=== PATIENT | male | born 1940 | race Caucasian/White ===

== ENCOUNTER → 2018-07-09 | Outpatient (CLI) | payer MEDICARE ==
[2018-07-09 12:04] LABS: HEMATOCRIT 24.8 % (42.0-52.0); HEMOGLOBIN 8.1 g/dL (13.5-18.0); MEAN CELL VOLUME 97 fl (78-100); MEAN CORPUSCULAR HEMOGLOBIN 32 pg (27-31); MEAN CORPUSCULAR HGB CONC 33 g/dL (33-37); MEAN PLATELET VOLUME 10.5 fl (7.4-10.4); PLATELET COUNT 290 K/mm3 (130-400); RED BLOOD COUNT 2.55 M/mm3 (4.20-5.60); RED CELL DISTRIBUTION WIDTH 12.7 % (11.5-14.5); WHITE BLOOD COUNT 23.2 K/mm3 (4.8-10.8)
[2018-07-09 12:06] LABS: ALBUMIN 2.2 g/dL (3.5-5.0); CALCIUM 8.3 mg/dL (8.4-10.2); POTASSIUM 4.2 mmol/L (3.6-5.0); TOTAL BILIRUBIN 0.4 mg/dL (0.2-1.3); TOTAL PROTEIN 4.2 g/dL (6.3-8.2)
[2018-07-09 12:33] LABS: LYMPHOCYTE 1 % (20-51); MONOCYTE 2 % (3-10); NEUTROPHILS 97 % (42-75)
== END ==
LOC: LAB 11:17
PROVIDERS: Emergency Medicine
DX: J44.0 Chronic obstructive pulmonary disease with (acute) lower respiratory infection (principal); J18.9 Pneumonia, unspecified organism; J44.1 Chronic obstructive pulmonary disease with (acute) exacerbation

== ENCOUNTER → 2018-07-16 | Outpatient (CLI) | payer MEDICARE ==
[2018-07-16 11:54] LABS: HEMATOCRIT 24.7 % (42.0-52.0)
[2018-07-16 12:22] LABS: ALBUMIN 2.4 g/dL (3.5-5.0); CALCIUM 8.2 mg/dL (8.4-10.2); POTASSIUM 4.8 mmol/L (3.6-5.0); TOTAL BILIRUBIN 0.4 mg/dL (0.2-1.3); TOTAL PROTEIN 4.7 g/dL (6.3-8.2)
[2018-07-16 13:46] LABS: HEMOGLOBIN 7.8 g/dL (13.5-18.0)
== END ==
LOC: LAB 10:11
PROVIDERS: Emergency Medicine
DX: J44.0 Chronic obstructive pulmonary disease with (acute) lower respiratory infection (principal); J18.9 Pneumonia, unspecified organism; J44.1 Chronic obstructive pulmonary disease with (acute) exacerbation

== ENCOUNTER → 2018-07-23 | Outpatient (CLI) | payer MEDICARE ==
[2018-07-23 10:22] LABS: HEMATOCRIT 26.5 % (42.0-52.0); HEMOGLOBIN 8.1 g/dL (13.5-18.0)
== END ==
LOC: LAB 10:00
PROVIDERS: Emergency Medicine
DX: D50.0 Iron deficiency anemia secondary to blood loss (chronic) (principal); R79.9 Abnormal finding of blood chemistry, unspecified

== ENCOUNTER → 2018-08-13 | Outpatient (CLI) | payer MEDICARE, OTHER | LOC: RAD 07:15 | DX: N26.1 Atrophy of kidney (terminal) (principal); N18.9 Chronic kidney disease, unspecified ==

== ENCOUNTER → 2018-08-28 | Outpatient (CLI) | payer MEDICARE, OTHER ==
[2018-08-28 12:23] LABS: URINE APPEARANCE CLEAR; URINE BILIRUBIN NEGATIVE (NEGATIVE); URINE BLOOD NEGATIVE (NEGATIVE); URINE COLOR YELLOW; URINE GLUCOSE 50 mg/dL mg/dL (NEGATIVE); URINE KETONE NEGATIVE (NEGATIVE); URINE LEUKOCYTE ESTERASE NEGATIVE (NEGATIVE); URINE NITRATE NEGATIVE (NEGATIVE); URINE PROTEIN(semi-quant) 1+ mg/dL (NEGATIVE); URINE UROBILINOGEN NORMAL (NORMAL)
[2018-08-28 12:24] LABS: URINE MUCUS PRESENT (NOT PRESENT)
[2018-08-28 12:35] LABS: CALCIUM 9.2 mg/dL (8.4-10.2); POTASSIUM 3.7 mmol/L (3.6-5.0)
[2018-08-28 12:50] LABS: HEMATOCRIT 30.9 % (42.0-52.0); HEMOGLOBIN 9.7 g/dL (13.5-18.0)
== END ==
LOC: LAB 11:41
PROVIDERS: Emergency Medicine
DX: I12.9 Hypertensive chronic kidney disease with stage 1 through stage 4 chronic kidney disease, or unspecified chronic kidney disease (principal); N18.4 Chronic kidney disease, stage 4 (severe); D63.1 Anemia in chronic kidney disease

== ENCOUNTER → 2018-12-07 | Outpatient (CLI) | payer MEDICARE, OTHER ==
[2018-12-07 08:29] LABS: HEMATOCRIT 33.3 % (42.0-52.0); HEMOGLOBIN 10.5 g/dL (13.5-18.0)
== END ==
LOC: LAB 07:58
PROVIDERS: Emergency Medicine
DX: D50.0 Iron deficiency anemia secondary to blood loss (chronic) (principal); R89.9 Unspecified abnormal finding in specimens from other organs, systems and tissues

== ENCOUNTER → 2018-12-24 | Outpatient (CLI) | payer MEDICARE, OTHER ==
[2018-12-24 08:26] LABS: HEMATOCRIT 34.5 % (42.0-52.0); HEMOGLOBIN 10.8 g/dL (13.5-18.0); MEAN PLATELET VOLUME 8.4 fl (7.4-10.4); RED BLOOD COUNT 3.71 M/mm3 (4.20-5.60); RED CELL DISTRIBUTION WIDTH 14.6 % (11.5-14.5); WHITE BLOOD COUNT 8.3 K/mm3 (4.8-10.8)
[2018-12-24 08:55] LABS: CALCIUM 9.4 mg/dL (8.3-10.5)
== END ==
LOC: LAB 08:12
PROVIDERS: Internal Medicine
DX: I12.9 Hypertensive chronic kidney disease with stage 1 through stage 4 chronic kidney disease, or unspecified chronic kidney disease (principal); N18.4 Chronic kidney disease, stage 4 (severe); D63.1 Anemia in chronic kidney disease

== ENCOUNTER → 2019-02-20 | Outpatient (CLI) | payer MEDICARE, OTHER | LOC: LAB 08:40 | DX: J47.9 Bronchiectasis, uncomplicated (principal) ==

== ENCOUNTER → 2019-03-20 | Outpatient (CLI) | payer MEDICARE, OTHER ==
[2019-03-20 08:55] LABS: HEMATOCRIT 34.9 % (42.0-52.0); HEMOGLOBIN 11.1 g/dL (13.5-18.0)
== END ==
LOC: LAB 08:39
PROVIDERS: Emergency Medicine
DX: D50.0 Iron deficiency anemia secondary to blood loss (chronic) (principal); R89.9 Unspecified abnormal finding in specimens from other organs, systems and tissues

== ENCOUNTER → 2019-09-26 | Outpatient (CLI) | payer MEDICARE, OTHER ==
[2019-09-26 09:01] LABS: MEAN PLATELET VOLUME 8.6 fl (7.4-10.4); RED BLOOD COUNT 3.78 M/mm3 (4.20-5.60); RED CELL DISTRIBUTION WIDTH 13.7 % (11.5-14.5); WHITE BLOOD COUNT 6.7 K/mm3 (4.8-10.8)
[2019-09-26 09:24] LABS: ALBUMIN 3.7 g/dL (3.4-4.8)
[2019-09-26 09:25] LABS: POTASSIUM 3.8 mmol/L (3.5-5.1)
[2019-09-26 09:26] LABS: CALCIUM 9.8 mg/dL (8.3-10.5)
== END ==
LOC: LAB 08:45
PROVIDERS: Internal Medicine Nephrology
DX: I12.9 Hypertensive chronic kidney disease with stage 1 through stage 4 chronic kidney disease, or unspecified chronic kidney disease (principal); E11.22 Type 2 diabetes mellitus with diabetic chronic kidney disease; N18.4 Chronic kidney disease, stage 4 (severe)

== ENCOUNTER → 2021-02-25 | Outpatient (CLI) | payer MEDICARE, OTHER | LOC: PT 08:40 | DX: M16.12 Unilateral primary osteoarthritis, left hip (principal) ==

== ENCOUNTER → 2021-09-07 | Outpatient (CLI) | payer MEDICARE, OTHER ==
[2021-09-07 12:49] LABS: BASO # 0.06 K/mm3 (0.02-0.10); EOS # 0.18 K/mm3 (0.04-0.40); EOS % 2.4 % (0.0-4.0); HEMATOCRIT 38.8 % (42.0-52.0); HEMOGLOBIN 12.3 g/dL (13.5-18.0); LYMPH# 1.41 K/mm3 (1.50-4.00); MEAN CELL VOLUME 101 fl (78-100); MEAN CORPUSCULAR HEMOGLOBIN 32 pg (27-31); MEAN CORPUSCULAR HGB CONC 32 g/dL (33-37); MEAN PLATELET VOLUME 7.9 fl (7.4-10.4); MONO # 0.82 K/mm3 (0.20-0.80); NEU # 5.09 K/mm3 (1.40-6.50); PLATELET COUNT 324 K/mm3 (130-400); RED BLOOD COUNT 3.84 M/mm3 (4.20-5.60); RED CELL DISTRIBUTION WIDTH 13.4 % (11.5-14.5); WHITE BLOOD COUNT 7.6 K/mm3 (4.8-10.8)
[2021-09-07 13:05] LABS: URINE APPEARANCE CLEAR; URINE BILIRUBIN NEGATIVE (NEGATIVE); URINE BLOOD TRACE (NEGATIVE); URINE COLOR YELLOW; URINE GLUCOSE NEGATIVE (NEGATIVE); URINE KETONE NEGATIVE (NEGATIVE); URINE LEUKOCYTE ESTERASE NEGATIVE (NEGATIVE); URINE NITRATE NEGATIVE (NEGATIVE); URINE PROTEIN(semi-quant) 2+ (NEGATIVE); URINE UROBILINOGEN NORMAL (NORMAL)
[2021-09-07 13:06] LABS: URINE MUCUS PRESENT (NOT PRESENT)
[2021-09-07 13:50] LABS: ALBUMIN 3.8 g/dL (3.4-4.8); POTASSIUM 4.2 mmol/L (3.5-5.1)
[2021-09-07 13:52] LABS: CALCIUM 9.6 mg/dL (8.3-10.5)
[2021-09-07 13:53] LABS: TOTAL PROTEIN 7.6 g/dL (6.2-8.1)
[2021-09-07 13:55] LABS: TOTAL BILIRUBIN 0.4 mg/dL (0.2-1.2)
[2021-09-07 13:59] LABS: MAGNESIUM 2.23 mg/dL (1.60-2.60)
== END ==
LOC: LAB 12:34
PROVIDERS: Internal Medicine
DX: C61 Malignant neoplasm of prostate (principal); E11.9 Type 2 diabetes mellitus without complications; J44.9 Chronic obstructive pulmonary disease, unspecified; E78.2 Mixed hyperlipidemia; I10 Essential (primary) hypertension; K90.9 Intestinal malabsorption, unspecified

== ENCOUNTER 2021-10-18 14:51 | Emergency (ER) | payer MEDICARE, OTHER ==
[~2021-10-18] VITALS: Wt 84.1 kg
[2021-10-18] MEDS ORDERED: SINGULAIR 110 MG/TAB PO (15:02)
[2021-10-18] MEDS ORDERED: GLUCOTROL 5M5 MG/TAB PO (15:02)
[2021-10-18] MEDS ORDERED: ATORVASTATIN CA10 MG PO (15:02)
[2021-10-18] MEDS ORDERED: CARDIZEM CD 24240 MG PO (15:02)
[2021-10-18] MEDS ORDERED: BROVANA15 MCG/2 M IH (15:15)
[2021-10-18] MEDS ORDERED: BUDESONIDE0.25 MG/2 IH (15:15)
[2021-10-18 15:18] LABS: PARTIAL THROMBOPLASTIN TIME 22.3 SECONDS (21.0-32.0)
[2021-10-18] MEDS ORDERED: ELIQUIS5 MG PO (16:27)
[2021-10-18 16:48] VITALS: BP 130/90
== END 2021-10-18 16:38 | disposition home or self-care (01) ==
LOC: ED 14:51
PROVIDERS: Nurse Practitioner
DX: I82.403 Acute embolism and thrombosis of unspecified deep veins of lower extremity, bilateral (principal); I27.82 Chronic pulmonary embolism; I48.91 Unspecified atrial fibrillation; Z87.891 Personal history of nicotine dependence; Z20.822 Contact with and (suspected) exposure to COVID-19

== ENCOUNTER → 2021-10-18 | Outpatient (CLI) | payer MEDICARE, OTHER ==
[~2021-10-18] MED LIST: ATORVASTATIN CA10 MG PO; BROVANA15 MCG/2 M IH; BUDESONIDE0.25 MG/2 IH; CARDIZEM CD 24240 MG PO; ELIQUIS5 MG PO; GLUCOTROL 5M5 MG/TAB PO; SINGULAIR 110 MG/TAB PO
[2021-10-18 11:03] LABS: BASO # 0.06 K/mm3 (0.02-0.10); EOS # 0.12 K/mm3 (0.04-0.40); EOS % 1.6 % (0.0-4.0); HEMATOCRIT 37.3 % (42.0-52.0); HEMOGLOBIN 11.9 g/dL (13.5-18.0); LYMPH# 0.99 K/mm3 (1.50-4.00); MEAN CELL VOLUME 100 fl (78-100); MEAN CORPUSCULAR HEMOGLOBIN 32 pg (27-31); MEAN CORPUSCULAR HGB CONC 32 g/dL (33-37); MEAN PLATELET VOLUME 8.3 fl (7.4-10.4); MONO # 0.64 K/mm3 (0.20-0.80); PLATELET COUNT 306 K/mm3 (130-400); RED BLOOD COUNT 3.72 M/mm3 (4.20-5.60); RED CELL DISTRIBUTION WIDTH 13.2 % (11.5-14.5); WHITE BLOOD COUNT 7.6 K/mm3 (4.8-10.8)
[2021-10-18 11:19] LABS: ALBUMIN 3.6 g/dL (3.4-4.8); POTASSIUM 3.7 mmol/L (3.5-5.1)
[2021-10-18 11:21] LABS: CALCIUM 9.2 mg/dL (8.3-10.5)
[2021-10-18 11:24] LABS: TOTAL BILIRUBIN 0.3 mg/dL (0.2-1.2)
== END ==
LOC: LAB 10:39 → VAS 10:39
PROVIDERS: Internal Medicine
DX: J44.9 Chronic obstructive pulmonary disease, unspecified (principal); M79.89 Other specified soft tissue disorders
CPT/HCPCS: Q9967

== ENCOUNTER → 2021-10-29 | Outpatient (CLI) | payer MEDICARE, OTHER | LOC: CARDREHAB 09:36 | DX: I48.20 Chronic atrial fibrillation, unspecified (principal) | CPT/HCPCS: A9500 ==

== ENCOUNTER → 2021-11-01 | Outpatient (CLI) | payer MEDICARE, OTHER | LOC: VAS 09:41 → RAD 10:00 | DX: I08.2 Rheumatic disorders of both aortic and tricuspid valves (principal); I26.99 Other pulmonary embolism without acute cor pulmonale ==

== ENCOUNTER → 2021-11-08 | Outpatient (CLI) | payer MEDICARE, OTHER ==
--- NOTE | 2021-11-08 11:50 | NUR ---
EKG COMPLETED - RESULTS VERBAL REPORTED TO DR. BUENROSTRO
== END ==
LOC: AMSURD 11:27
DX: I48.20 Chronic atrial fibrillation, unspecified (principal); I44.0 Atrioventricular block, first degree

== ENCOUNTER → 2021-11-23 | Outpatient (CLI) | payer MEDICARE, OTHER ==
[2021-11-23 14:18] LABS: BASO # 0.09 K/mm3 (0.02-0.10); EOS # 0.16 K/mm3 (0.04-0.40); EOS % 1.7 % (0.0-4.0); HEMATOCRIT 38.2 % (42.0-52.0); HEMOGLOBIN 12.2 g/dL (13.5-18.0); LYMPH# 1.13 K/mm3 (1.50-4.00); MEAN CELL VOLUME 100 fl (78-100); MEAN CORPUSCULAR HEMOGLOBIN 32 pg (27-31); MEAN CORPUSCULAR HGB CONC 32 g/dL (33-37); MEAN PLATELET VOLUME 8.4 fl (7.4-10.4); MONO # 0.86 K/mm3 (0.20-0.80); NEU # 7.23 K/mm3 (1.40-6.50); PLATELET COUNT 320 K/mm3 (130-400); RED BLOOD COUNT 3.82 M/mm3 (4.20-5.60); RED CELL DISTRIBUTION WIDTH 12.9 % (11.5-14.5); WHITE BLOOD COUNT 9.5 K/mm3 (4.8-10.8)
[2021-11-23 14:32] LABS: ALBUMIN 3.9 g/dL (3.4-4.8); POTASSIUM 4.5 mmol/L (3.5-5.1)
[2021-11-23 14:33] LABS: CALCIUM 9.6 mg/dL (8.3-10.5)
[2021-11-23 14:35] LABS: TOTAL PROTEIN 7.5 g/dL (6.2-8.1)
[2021-11-23 14:36] LABS: TOTAL BILIRUBIN 0.4 mg/dL (0.2-1.2)
[2021-11-23 14:41] LABS: MAGNESIUM 2.41 mg/dL (1.60-2.60)
== END ==
LOC: LAB 13:48
PROVIDERS: Internal Medicine
DX: I10 Essential (primary) hypertension (principal); K90.9 Intestinal malabsorption, unspecified

== ENCOUNTER → 2022-01-17 | Outpatient (CLI) | payer MEDICARE, OTHER ==
[2022-01-17 12:40] LABS: BASO # 0.06 K/mm3 (0.02-0.10); EOS # 0.18 K/mm3 (0.04-0.40); EOS % 2.1 % (0.0-4.0); HEMATOCRIT 36.8 % (42.0-52.0); HEMOGLOBIN 11.9 g/dL (13.5-18.0); LYMPH# 1.33 K/mm3 (1.50-4.00); MEAN CELL VOLUME 101 fl (78-100); MEAN CORPUSCULAR HEMOGLOBIN 33 pg (27-31); MEAN CORPUSCULAR HGB CONC 32 g/dL (33-37); MEAN PLATELET VOLUME 8.8 fl (7.4-10.4); MONO # 0.89 K/mm3 (0.20-0.80); NEU # 6.13 K/mm3 (1.40-6.50); PLATELET COUNT 342 K/mm3 (130-400); RED BLOOD COUNT 3.66 M/mm3 (4.20-5.60); WHITE BLOOD COUNT 8.6 K/mm3 (4.8-10.8)
[2022-01-17 13:34] LABS: ALBUMIN 3.7 g/dL (3.4-4.8)
[2022-01-17 13:35] LABS: POTASSIUM 3.8 mmol/L (3.5-5.1)
[2022-01-17 13:36] LABS: CALCIUM 9.5 mg/dL (8.3-10.5)
[2022-01-17 13:37] LABS: TOTAL PROTEIN 7.2 g/dL (6.2-8.1)
[2022-01-17 13:39] LABS: TOTAL BILIRUBIN 0.5 mg/dL (0.2-1.2)
[2022-01-17 13:43] LABS: MAGNESIUM 2.28 mg/dL (1.60-2.60)
== END ==
LOC: LAB 11:21
PROVIDERS: Internal Medicine
DX: I48.20 Chronic atrial fibrillation, unspecified (principal); K90.9 Intestinal malabsorption, unspecified; J44.9 Chronic obstructive pulmonary disease, unspecified; I27.82 Chronic pulmonary embolism; I27.24 Chronic thromboembolic pulmonary hypertension; E55.9 Vitamin D deficiency, unspecified; I71.2 Thoracic aortic aneurysm, without rupture

== ENCOUNTER → 2022-03-15 | Outpatient (CLI) | payer MEDICARE, OTHER ==
[2022-03-15 17:48] LABS: BASO # 0.05 K/mm3 (0.02-0.10); EOS # 0.43 K/mm3 (0.04-0.40); EOS % 4.5 % (0.0-4.0); HEMATOCRIT 36.7 % (42.0-52.0); HEMOGLOBIN 11.7 g/dL (13.5-18.0); LYMPH# 1.79 K/mm3 (1.50-4.00); MEAN CELL VOLUME 103 fl (78-100); MEAN CORPUSCULAR HEMOGLOBIN 33 pg (27-31); MEAN CORPUSCULAR HGB CONC 32 g/dL (33-37); MEAN PLATELET VOLUME 8.4 fl (7.4-10.4); MONO # 0.92 K/mm3 (0.20-0.80); NEU # 6.23 K/mm3 (1.40-6.50); PLATELET COUNT 240 K/mm3 (130-400); RED BLOOD COUNT 3.56 M/mm3 (4.20-5.60); RED CELL DISTRIBUTION WIDTH 13.5 % (11.5-14.5); WHITE BLOOD COUNT 9.5 K/mm3 (4.8-10.8)
[2022-03-15 18:03] LABS: ALBUMIN 3.8 g/dL (3.4-4.8); POTASSIUM 4.1 mmol/L (3.5-5.1)
[2022-03-15 18:04] LABS: CALCIUM 8.9 mg/dL (8.3-10.5)
[2022-03-15 18:06] LABS: TOTAL PROTEIN 7.1 g/dL (6.2-8.1)
[2022-03-15 18:07] LABS: TOTAL BILIRUBIN 0.4 mg/dL (0.2-1.2)
== END ==
LOC: LAB 17:34
PROVIDERS: Nurse Practitioner Family
DX: R60.0 Localized edema (principal)

== ENCOUNTER → 2023-05-05 | Outpatient (CLI) | payer MEDICARE, OTHER ==
[2023-05-05 15:42] LABS: ALBUMIN 2.7 g/dL (3.4-4.8)
[2023-05-05 15:43] LABS: CALCIUM 10.1 mg/dL (8.3-10.5)
[2023-05-05 15:44] LABS: TOTAL PROTEIN 7.4 g/dL (6.2-8.1)
[2023-05-05 15:46] LABS: TOTAL BILIRUBIN 0.2 mg/dL (0.2-1.2)
[2023-05-05 15:57] LABS: HEMATOCRIT 32.1 % (42.0-52.0); MEAN CELL VOLUME 99 fl (78-100); MEAN CORPUSCULAR HEMOGLOBIN 31 pg (27-31); MEAN CORPUSCULAR HGB CONC 31 g/dL (33-37); MEAN PLATELET VOLUME 8.8 fl (7.4-10.4); PLATELET COUNT 533 K/mm3 (130-400); RED BLOOD COUNT 3.23 M/mm3 (4.20-5.60); RED CELL DISTRIBUTION WIDTH 14.1 % (11.5-14.5); WHITE BLOOD COUNT 17.2 K/mm3 (4.8-10.8)
[2023-05-05 17:33] LABS: BAND 6 % (0-10); LYMPHOCYTE 6 % (20-51); MONOCYTE 8 % (3-10); NEUTROPHILS 80 % (42-75)
== END ==
LOC: LAB 15:20
PROVIDERS: Internal Medicine
DX: C43.51 Malignant melanoma of anal skin (principal)